=== PATIENT | female | born 1960 | race African-American/Black ===

== ENCOUNTER 2020-11-27 13:14 | Emergency (ER) | payer OTHER ==
[~2020-11-27] VITALS: Ht 170.2 cm; Wt 126.1 kg
[2020-11-27 13:24] VITALS: BP 158/80
[2020-11-27] MEDS ORDERED: PROMETH-CODEIN 65 ML PO ×2 (14:47→15:09)
== END 2020-11-27 14:54 | disposition home or self-care (01) ==
LOC: ER 13:14
DX: J06.9 Acute upper respiratory infection, unspecified (principal); Z20.822 Contact with and (suspected) exposure to COVID-19